=== PATIENT | female | born 1960 | race Caucasian/White ===

== ENCOUNTER 2020-09-02 07:01 | Emergency (ER) | payer OTHER, BC ==
[~2020-09-02] VITALS: Ht 160 cm; Wt 114.0 kg
[~2020-09-02 07:01] MED LIST: CLARITHROMYC500 MG PO; LIPOZENE PO; MECLIZINE25 MG PO; MEDDOSEPAK PO; NO CURRENT MEDS; ULTRAM50 MG PO; VOSOL2 % OT; XANAX0.5 MG PO; ZITHROMAX500 MG PO; ZOLOFT100 MG PO; ZYRTEC-D AL1 OR; [UNRECOGNIZED DRUG - OTHER]; [UNRECOGNIZED DRUG - OTHER] PO
[2020-09-02 07:06] VITALS: BP 149/79
[2020-09-02] MEDS ORDERED: CLARITIN-D1 TA2 PO (07:35)
[2020-09-02] MEDS ORDERED: VITAMIN B-12500 MCG PO (07:35)
[2020-09-02] MEDS ORDERED: FERRAPLUS 90 PO (07:36)
[2020-09-02] MEDS ORDERED: CALCIUM & VITAMIN D3 (07:36)
[2020-09-02] MEDS ORDERED: VITAMIN D-31000 UNIT PO (07:37)
== END 2020-09-02 09:45 | disposition home or self-care (01) | DRG 605 ==
LOC: ED 07:01
DX: S00.03XA Contusion of scalp, initial encounter (principal); S30.0XXA Contusion of lower back and pelvis, initial encounter; W01.0XXA Fall on same level from slipping, tripping and stumbling without subsequent striking against object, initial encounter; Y92.89 Other specified places as the place of occurrence of the external cause; Y99.0 Civilian activity done for income or pay; Z20.828 Contact with and (suspected) exposure to other viral communicable diseases

== ENCOUNTER 2021-02-06 07:44 | Emergency (ER) | payer BC ==
[~2021-02-06] VITALS: Ht 160 cm; Wt 112.0 kg
[~2021-02-06 07:44] MED LIST changes: +CALCIUM & VITAMIN D3; +CLARITIN-D1 TA2 PO; +FERRAPLUS 90 PO; +VITAMIN B-12500 MCG PO; +VITAMIN D-31000 UNIT PO
[2021-02-06 08:27] LABS: HEMATOCRIT 39.3 % (37.0-47.0); HEMOGLOBIN 12.6 g/dl (12.0-16.0); IMMATURE GRANULOCYTES 0.2 % (0.0-5.0); MEAN CELL VOLUME 93.3 fL CALC (80.0-100.0); MEAN CORPUSCULAR HGB 29.9 pG CALC (26.0-32.0); MEAN CORPUSCULAR HGB CONC 32.1 g/dL CAL (32.0-36.0); NEUT# 6.18 thou/uL (2.00-7.15); RED BLOOD COUNT 4.21 mill/uL (4.20-5.60); RED CELL DISTRI WIDTH 12.5 % (11.5-15.5)
[2021-02-06 08:46] LABS: ALBUMIN 3.9 g/dL (3.2-5.0); ALKALINE PHOSPHATASE 159 u/l (38-126); ANION GAP 11 (6-22 (CALC)); BILIRUBIN, TOTAL 0.6 mg/dL (0.0-1.4); BUN 15 mg/dL (8-23); BUN/CREATININE RATIO 19 (12-20 (CALC)); CARBON DIOXIDE 26 mmol/l (22-30); CHLORIDE 97 mmol/l (95-108); CREATININE 0.8 mg/dL (0.5-1.0); GFR > 60 ML/MIN (>=60 (CALC)); GFR FOR AFR.AMER. > 60 ML/MIN (>=60 (CALC)); POTASSIUM 3.7 mmol/l (3.5-5.1); SGOT/AST 55 u/l (9-36); TOTAL PROTEIN 6.9 g/dL (6.3-8.2)
[2021-02-06 08:49] LABS: SODIUM 130 mmol/l (137-146)
[2021-02-06] MEDS ORDERED: CLINDAMYCIN HC150 MG PO (08:52)
[2021-02-06] MEDS ORDERED: DOXYCYCL HYC100 MG PO (08:53)
[2021-02-06 11:08] VITALS: BP 131/78
== END 2021-02-06 11:45 | disposition home or self-care (01) | DRG 605 ==
LOC: ED 07:44
PROC: 02HV33Z Insertion of Infusion Device into Superior Vena Cava, Percutaneous Approach (ICD-10-PCS; principal; 2021-02-06)
PROC: B518ZZA Fluoroscopy of Superior Vena Cava, Guidance (ICD-10-PCS; 2021-02-06)
DX: S81.852A Open bite, left lower leg, initial encounter (principal); L08.9 Local infection of the skin and subcutaneous tissue, unspecified; W55.01XA Bitten by cat, initial encounter; Y92.009 Unspecified place in unspecified non-institutional (private) residence as the place of occurrence of the external cause; Z88.0 Allergy status to penicillin

== ENCOUNTER 2021-02-08 11:17 | Emergency (ER) | payer BC ==
[~2021-02-08] VITALS: Ht 160 cm; Wt 77.0 kg
[~2021-02-08 11:17] MED LIST changes: +CLINDAMYCIN HC150 MG PO; +DOXYCYCL HYC100 MG PO
[2021-02-08 12:09] VITALS: BP 120/70
== END 2021-02-08 12:12 | disposition home or self-care (01) | DRG 950 ==
LOC: ED 11:17
DX: S81.852D Open bite, left lower leg, subsequent encounter (principal); W55.01XD Bitten by cat, subsequent encounter